=== PATIENT | male | born 1965 | race Caucasian/White ===

== ENCOUNTER 2017-11-26 08:42 | Inpatient (IN) | payer BC, OTHER ==
[~2017-11-26] VITALS: Ht 175.3 cm; Wt 104.1 kg
[~2017-11-26 08:42] MED LIST: BENZTROPINE MESY1 MG PO; LEVAQUIN500 MG PO; LEVAQUIN750 MG PO; NORCO 5/3251 TABLET PO; PROZAC40 MG PO; RISPERIDONE3 MG PO; SEROQUEL100 MG PO; TRAMADOL HCL50 MG PO; ZIPRASIDONE HCL20 MG PO
[2017-11-26 09:42] LABS: HEMATOCRIT 44.7 % (38.0-50.0); HEMOGLOBIN 14.6 G/DL (12.5-16.6); MCH 27.8 PG (29.0-34.0); MCHC 32.7 G/DL (30.0-36.0); PLATELET COUNT 163 K/uL (156-360); RBC DIS.WIDTH-CV 14.8 % (11.8-14.6); RED BLOOD COUNT 5.26 M/uL (4.00-5.50); WHITE BLOOD COUNT 2.9 K/uL (4.1-10.2)
[2017-11-26 09:52] LABS: CHLORIDE 102 mEq/L (99-109); POTASSIUM 4.1 mEq/L (3.7-5.4); SODIUM 137 mEq/L (136-147)
[2017-11-26 09:55] LABS: GLUCOSE 108 mg/dL (70-99); TOTAL PROTEIN 6.7 g/dL (6.4-8.3)
[2017-11-26 09:57] LABS: TOTAL BILIRUBIN 0.6 mg/dL (0.0-1.0)
[2017-11-26 09:58] LABS: ALKALINE PHOSPHATASE 64 IU/L (3-129); SERUM ETHYL ALCOHOL < 10 mg/dL
[2017-11-26 09:59] LABS: CREATININE 1.2 mg/dL (0.6-1.3); GFR ESTIMATE (CALCULATED) > 59 mL/min/ (58.99-99999)
[2017-11-26 10:00] LABS: AST (GOT) 17 IU/L (2-34); UREA NITROGEN (BUN) 14 mg/dL (9-23)
[2017-11-26 10:01] LABS: ALT (GPT) 17 IU/L (3-49)
[2017-11-26 10:10] LABS: AMPHETAMINE NEGATIVE (500 ng/mL); BARBITURATES NEGATIVE (200 ng/mL); BENZODIAZEPINES NEGATIVE (150 ng/mL); BUPRENORPHINE NEGATIVE (10 ng/mL); COCAINE NEGATIVE (150 ng/mL); METHADONE NEGATIVE (200 ng/mL); METHAMPHETAMINE NEGATIVE (500 ng/mL); OPIATES (MORPHINE) NEGATIVE (100 ng/mL); OXYCODONE NEGATIVE (100 ng/mL); PHENCYCLIDINE NEGATIVE (25 ng/mL); PROPOXYPHENE NEGATIVE (300 ng/mL); THC CANNABINOIDS NEGATIVE (50 ng/mL); TRICYCLIC ANTIDEPRESSANTS NEGATIVE (300 ng/mL)
[2017-11-26 10:19] LABS: APPEARANCE CLEAR ((CLEAR)); BILIRUBIN NEGATIVE; BLOOD NEGATIVE; COLOR YELLOW ((YELLOW)); GLUCOSE (STRIP) NEGATIVE; KETONES NEGATIVE; LEUKOCYTES NEGATIVE; NITRITE NEGATIVE; PROTEIN (STRIP) NEGATIVE; SPECIFIC GRAVITY 1.018 (1.000-1.030); UROBILINOGEN 0.2 MG/DL (0.2-1.0)
[2017-11-26 15:53] VITALS: BP 154/96
[2017-11-26 15:59] VITALS: BP 154/96
[2017-11-27 07:43] VITALS: BP 137/76
[2017-11-27 15:36] VITALS: BP 120/68
[2017-11-28 07:58] VITALS: BP 105/63
[2017-11-28 15:54] VITALS: BP 126/73
[2017-11-29 09:45] VITALS: BP 126/72
[2017-11-29 16:31] VITALS: BP 123/77
[2017-11-30 07:56] VITALS: BP 125/82
[2017-11-30 15:43] VITALS: BP 132/85
[2017-12-01 07:58] VITALS: BP 136/80
[2017-12-01 15:33] VITALS: BP 129/74
[2017-12-02 07:49] VITALS: BP 119/78
[2017-12-02 13:31] LABS: BASOPHIL (%) 0.5 % (0-1); EOSINOPHIL (%) 2.8 % (0-5); EOSINOPHIL COUNT 0.1 K/uL (0-0.3); HEMATOCRIT 43.5 % (38.0-50.0); HEMOGLOBIN 14.2 G/DL (12.5-16.6); IMMATURE GRANULOCYTE (%) 0.3 % (0.0-0.7); LYMPHOCYTE (%) 29.2 % (15-42); LYMPHOCYTE COUNT 1.1 K/uL (1.0-2.8); MCH 27.7 PG (29.0-34.0); MCHC 32.6 G/DL (30.0-36.0); MCV 84.8 FL (86-99); MONOCYTE (%) 7.2 % (3-12); MONOCYTE COUNT 0.3 K/uL (0-0.8); NEUTROPHIL COUNT 2.3 K/uL (1.8-6.4); PLATELET COUNT 179 K/uL (156-360); RBC DIS.WIDTH-CV 14.5 % (11.8-14.6); RBC DIS.WIDTH-SD 44.8 % (39-53); RED BLOOD COUNT 5.13 M/uL (4.00-5.50); WHITE BLOOD COUNT 3.9 K/uL (4.1-10.2)
[2017-12-02 13:56] LABS: ALBUMIN 3.8 G/DL (3.2-4.8); ALKALINE PHOSPHATASE 48 IU/L (3-129); ALT (GPT) 10 IU/L (3-49); AST (GOT) 12 IU/L (2-34); CHLORIDE 104 MEQ/L (99-109); CREATININE 1.1 MG/DL (0.6-1.3); GFR ESTIMATE (CALCULATED) > 59 mL/min/ (58.99-99999); GLUCOSE 99 mg/dL (70-99); POTASSIUM 4.1 MEQ/L (3.7-5.4); SODIUM 140 MEQ/L (136-147); TOTAL BILIRUBIN 0.3 MG/DL (0.0-1.0); TOTAL PROTEIN 5.9 G/DL (6.4-8.3); UREA NITROGEN (BUN) 18 mg/dL (9-23)
[2017-12-02 15:21] VITALS: BP 148/95
[2017-12-03 07:36] VITALS: BP 138/90
[2017-12-03 15:19] VITALS: BP 116/73
[2017-12-04 07:40] VITALS: BP 142/85
[2017-12-04 15:18] VITALS: BP 136/76
[2017-12-05 09:32] VITALS: BP 161/89
[2017-12-05 15:25] VITALS: BP 126/71
[2017-12-06 08:18] VITALS: BP 137/92
[2017-12-06 15:44] VITALS: BP 123/72
[2017-12-07 07:57] VITALS: BP 130/79
[2017-12-07 15:27] VITALS: BP 137/75
[2017-12-08 07:54] VITALS: BP 153/79
[2017-12-08 15:17] VITALS: BP 139/83
[2017-12-09 07:34] VITALS: BP 142/87
[2017-12-09 16:11] VITALS: BP 154/86
[2017-12-10 08:04] VITALS: BP 133/91
[2017-12-10 16:48] VITALS: BP 125/86
[2017-12-11 07:54] VITALS: BP 151/90
[2017-12-11 15:39] VITALS: BP 128/84
[2017-12-12 08:03] VITALS: BP 132/77
[2017-12-12 15:57] VITALS: BP 123/79
[2017-12-13 07:41] VITALS: BP 129/81
[2017-12-13 16:12] VITALS: BP 132/77
[2017-12-14 07:52] VITALS: BP 136/74
[2017-12-14 15:59] VITALS: BP 128/82
[2017-12-15 07:19] VITALS: BP 121/68
[2017-12-15 16:06] VITALS: BP 122/70
[2017-12-16 07:22] VITALS: BP 141/85
[2017-12-16] MEDS ORDERED: ZIPRASIDONE HCL80 MG PO (09:23)
[2017-12-16] MEDS ORDERED: DIVALPROEX SOD500 M1 PO (09:23)
== END 2017-12-16 11:17 | disposition home or self-care (01) | DRG 886 ==
LOC: EME 08:42 → 1WEST 12:58 → EDOF 12:58 → 1WEST 12:58 → EDOF 13:13 → ENRESERV 13:45 → 1WEST 15:48
PROVIDERS: Emergency Medicine; Psychiatry & Neurology Psychiatry
DX: F63.9 Impulse disorder, unspecified (principal); R45.850 Homicidal ideations; F29 Unspecified psychosis not due to a substance or known physiological condition; F10.10 Alcohol abuse, uncomplicated; F60.2 Antisocial personality disorder; F33.0 Major depressive disorder, recurrent, mild; F41.9 Anxiety disorder, unspecified; Z59.0 Homelessness
CPT/HCPCS: 70551; 80053; 80164; 81003; 85025; 85027; 90839; 97150 GO; 97166 GO; 99281; 99285; G0480; J3486; Q0177

== ENCOUNTER 2018-04-13 09:01 | Inpatient (IN) | payer OTHER ==
[~2018-04-13] VITALS: Ht 175.3 cm; Wt 101.7 kg
[~2018-04-13 09:01] MED LIST changes: +DIVALPROEX SOD500 M1 PO; +ZIPRASIDONE HCL80 MG PO
[2018-04-13 10:09] LABS: HEMOGLOBIN 14.4 G/DL (12.5-16.6); MCH 28.2 PG (29.0-34.0); MCHC 33.5 G/DL (30.0-36.0); MCV 84.1 FL (86-99); PLATELET COUNT 187 K/uL (156-360); RBC DIS.WIDTH-CV 14.2 % (11.8-14.6); RBC DIS.WIDTH-SD 43.5 % (39-53); RED BLOOD COUNT 5.11 M/uL (4.00-5.50); WHITE BLOOD COUNT 4.2 K/uL (4.1-10.2)
[2018-04-13 10:22] LABS: CHLORIDE 105 mEq/L (99-109); POTASSIUM 3.9 mEq/L (3.7-5.4); SODIUM 140 mEq/L (136-147)
[2018-04-13 10:23] LABS: GLUCOSE 98 mg/dL (70-99)
[2018-04-13 10:27] LABS: CREATININE 0.8 mg/dL (0.6-1.3); GFR ESTIMATE (CALCULATED) > 59 mL/min/ (58.99-99999); SERUM ETHYL ALCOHOL < 10 mg/dL
[2018-04-13 10:28] LABS: UREA NITROGEN (BUN) 13 mg/dL (9-23)
[2018-04-13 11:44] LABS: AMPHETAMINE NEGATIVE (500 ng/mL); BARBITURATES NEGATIVE (200 ng/mL); BENZODIAZEPINES NEGATIVE (150 ng/mL); BUPRENORPHINE NEGATIVE (10 ng/mL); COCAINE NEGATIVE (150 ng/mL); METHADONE NEGATIVE (200 ng/mL); METHAMPHETAMINE NEGATIVE (500 ng/mL); OPIATES (MORPHINE) NEGATIVE (100 ng/mL); OXYCODONE NEGATIVE (100 ng/mL); PHENCYCLIDINE NEGATIVE (25 ng/mL); PROPOXYPHENE NEGATIVE (300 ng/mL); THC CANNABINOIDS NEGATIVE (50 ng/mL); TRICYCLIC ANTIDEPRESSANTS NEGATIVE (300 ng/mL)
[2018-04-13 13:46] VITALS: BP 163/84
[2018-04-13 14:01] VITALS: BP 163/84
[2018-04-13 16:03] VITALS: BP 134/81
[2018-04-14 07:58] VITALS: BP 139/72
[2018-04-14 16:04] VITALS: BP 125/84
[2018-04-15 08:19] VITALS: BP 137/83
[2018-04-15 17:01] VITALS: BP 137/85
[2018-04-16 09:16] VITALS: BP 122/85
[2018-04-16 16:31] VITALS: BP 137/75
[2018-04-17 07:59] VITALS: BP 117/86
[2018-04-17 15:22] VITALS: BP 119/73
[2018-04-18 07:43] VITALS: BP 126/76
[2018-04-18 15:47] VITALS: BP 121/76
[2018-04-19 08:11] VITALS: BP 112/64
[2018-04-19] MEDS ORDERED: DIVALPROEX SOD500 M1 PO (09:29)
[2018-04-19] MEDS ORDERED: DESIPRAMINE HCL25 MG PO (09:29)
== END 2018-04-19 16:05 | disposition home or self-care (01) | DRG 886 ==
LOC: EME 09:01 → 1WEST 11:16 → EDOF 11:16 → ENRESERV 12:51 → 1WEST 13:37
PROVIDERS: Emergency Medicine
DX: F63.9 Impulse disorder, unspecified (principal); F42.9 Obsessive-compulsive disorder, unspecified; F60.2 Antisocial personality disorder; R45.850 Homicidal ideations; F10.10 Alcohol abuse, uncomplicated; Z91.14 Patient's other noncompliance with medication regimen
CPT/HCPCS: 80048; 80164; 85027; 90839; 93005; 97150 GO; 97165 GO; 99281; 99285; G0480

== ENCOUNTER 2018-07-07 12:58 | Inpatient (IN) | payer OTHER ==
[~2018-07-07] VITALS: Ht 175.3 cm; Wt 101.3 kg
[~2018-07-07 12:58] MED LIST changes: +DESIPRAMINE HCL25 MG PO
[2018-07-07 14:42] LABS: AMPHETAMINE NEGATIVE (500 ng/mL); BARBITURATES NEGATIVE (200 ng/mL); BENZODIAZEPINES NEGATIVE (150 ng/mL); BUPRENORPHINE NEGATIVE (10 ng/mL); COCAINE NEGATIVE (150 ng/mL); METHADONE NEGATIVE (200 ng/mL); METHAMPHETAMINE NEGATIVE (500 ng/mL); OPIATES (MORPHINE) NEGATIVE (100 ng/mL); OXYCODONE NEGATIVE (100 ng/mL); PHENCYCLIDINE NEGATIVE (25 ng/mL); PROPOXYPHENE NEGATIVE (300 ng/mL); THC CANNABINOIDS NEGATIVE (50 ng/mL); TRICYCLIC ANTIDEPRESSANTS NEGATIVE (300 ng/mL)
[2018-07-07 14:47] LABS: BASOPHIL (%) 0.8 % (0-1); EOSINOPHIL (%) 2.7 % (0-5); EOSINOPHIL COUNT 0.1 K/uL (0-0.3); HEMATOCRIT 44.9 % (38.0-50.0); HEMOGLOBIN 14.6 G/DL (12.5-16.6); IMMATURE GRANULOCYTE (%) 0.8 % (0.0-0.7); LYMPHOCYTE (%) 26.6 % (15-42); LYMPHOCYTE COUNT 1.3 K/uL (1.0-2.8); MCH 28.4 PG (29.0-34.0); MCHC 32.5 G/DL (30.0-36.0); MCV 87.4 FL (86-99); MONOCYTE (%) 7.5 % (3-12); MONOCYTE COUNT 0.4 K/uL (0-0.8); NEUTROPHIL (%) 61.6 % (45-76); PLATELET COUNT 208 K/uL (156-360); RBC DIS.WIDTH-CV 15.9 % (11.8-14.6); RED BLOOD COUNT 5.14 M/uL (4.00-5.50); WHITE BLOOD COUNT 4.8 K/uL (4.1-10.2)
[2018-07-07 14:58] LABS: CHLORIDE 109 mEq/L (99-109); POTASSIUM 4.5 mEq/L (3.7-5.4); SODIUM 141 mEq/L (136-147)
[2018-07-07 15:00] LABS: GLUCOSE 92 mg/dL (70-99)
[2018-07-07 15:03] LABS: SERUM ETHYL ALCOHOL < 10 mg/dL
[2018-07-07 15:04] LABS: CREATININE 0.9 mg/dL (0.6-1.3); GFR ESTIMATE (CALCULATED) > 59 mL/min/ (58.99-99999)
[2018-07-07 15:05] LABS: UREA NITROGEN (BUN) 12 mg/dL (9-23)
[2018-07-07 15:07] LABS: ACETAMINOPHEN (TYLENOL) < 10 mcg/mL (10-30); SALICYLATE < 5.0 MG/DL (15-30)
[2018-07-07 19:41] VITALS: BP 167/82
[2018-07-07 19:42] VITALS: BP 167/82
[2018-07-07] MEDS ORDERED: DEPAKOTE ER500 MG PO (20:23)
[2018-07-07] MEDS ORDERED: DESIPRAMINE HCL 75 MG PO (20:24)
[2018-07-08 09:23] VITALS: BP 137/83
[2018-07-08 16:05] VITALS: BP 138/86
[2018-07-08 17:39] LABS: APPEARANCE CLEAR ((CLEAR)); BILIRUBIN NEGATIVE; BLOOD NEGATIVE; COLOR YELLOW ((YELLOW)); GLUCOSE (STRIP) NEGATIVE; KETONES NEGATIVE; LEUKOCYTES NEGATIVE; NITRITE NEGATIVE; PROTEIN (STRIP) NEGATIVE; SPECIFIC GRAVITY 1.025 (1.000-1.030); UCUL ADDED? NO; UROBILINOGEN 0.2 MG/DL (0.2-1.0)
[2018-07-09 16:14] VITALS: BP 119/71
[2018-07-10 07:40] VITALS: BP 119/79
[2018-07-10 15:11] VITALS: BP 107/63
[2018-07-11 07:43] VITALS: BP 112/62
[2018-07-11 15:16] VITALS: BP 104/67
[2018-07-12 07:40] VITALS: BP 123/64
[2018-07-12 16:25] VITALS: BP 120/73
[2018-07-12 22:58] LABS: HCG Total (Tumor Marker)+ <2 mIU/mL (<5)
[2018-07-13 07:45] VITALS: BP 132/83
[2018-07-13 16:10] VITALS: BP 117/78
[2018-07-14 07:52] VITALS: BP 141/64
[2018-07-14] MEDS ORDERED: DIVALPROEX SOD500 M1 PO (09:20)
[2018-07-14] MEDS ORDERED: DESIPRAMINE HCL25 MG PO (09:21)
== END 2018-07-14 10:51 | disposition home or self-care (01) | DRG 886 ==
LOC: EME 12:58 → EDOF 18:36 → 1WEST 18:36 → ENRESERV 19:17 → 1WEST 19:36
PROVIDERS: Emergency Medicine; Physician Assistant; Urology
DX: F63.9 Impulse disorder, unspecified (principal); F32.9 Major depressive disorder, single episode, unspecified; K40.90 Unilateral inguinal hernia, without obstruction or gangrene, not specified as recurrent; N44.00 Torsion of testis, unspecified; R45.850 Homicidal ideations; Z59.0 Homelessness; F43.24 Adjustment disorder with disturbance of conduct; F10.20 Alcohol dependence, uncomplicated; Z53.29 Procedure and treatment not carried out because of patient's decision for other reasons; N50.82 Scrotal pain; F42.9 Obsessive-compulsive disorder, unspecified; F60.2 Antisocial personality disorder; I86.1 Scrotal varices; F60.81 Narcissistic personality disorder; N50.89 Other specified disorders of the male genital organs
CPT/HCPCS: 74176; 76870; 80048; 80164; 81003; 82105 90; 83615; 84153; 84702 90; 85025; 90839; 97150 GO; 97165 GO; 99281; 99285; G0480